=== PATIENT | female | born 1975 | race African-American/Black ===

== ENCOUNTER 2018-10-31 16:51 | Emergency (ER) | payer BC ==
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
== END 2018-10-31 18:24 | disposition home or self-care (01) ==
LOC: EDBD 16:51 → SCSER 16:51
DX: S16.1XXA Strain of muscle, fascia and tendon at neck level, initial encounter (principal); S39.012A Strain of muscle, fascia and tendon of lower back, initial encounter; V89.2XXA Person injured in unspecified motor-vehicle accident, traffic, initial encounter
CPT/HCPCS: 70450; 72100; 72125